=== PATIENT | female | born 1940 | race Caucasian/White ===

== ENCOUNTER 2017-11-26 08:52 | Inpatient (IN) | payer MEDICARE, BC ==
[~2017-11-26 08:52] MED LIST: CEFAZOLIN 2 GM/50 ML (PMX) 50 ML IVPB; KETOROLAC 30 MG INJ; TRANEXAMIC ACID 1,000 MG in DEXTROSE 5% 100 ML IVPB
[2017-11-26] MEDS: LACTATED RINGER'S 1,000 ML IV* (10:00)
[2017-11-26] MEDS: hydrALAzine 20 MG INJ IV (10:24)
[2017-11-26] MEDS: traMADol 50 MG TAB PO (10:24)
[2017-11-26] MEDS: DEXAMETHASONE 1 MG TAB PO (10:24)
[2017-11-26] MEDS: GABAPENTIN 300 MG CAP PO ×2 (10:25→20:47)
[2017-11-26] MEDS: metFORMIN (XR) 500 MG TAB PO (11:30)
[2017-11-26] MEDS ORDERED: PROPOFOL 20 ML (12:00)
[2017-11-26] MEDS ORDERED: GLUCOSE GEL 15 GRAM TUBE PO ×2 (12:00)
[2017-11-26] MEDS ORDERED: INSULIN ASPART [NOVOLOG] 3 ML PEN SC (12:00)
[2017-11-26] MEDS ORDERED: ONDANSETRON 4 MG INJ (12:00)
[2017-11-26] MEDS ORDERED: FENTAnyl 50 MCG/ML VIAL ×2 (12:00→12:29)
[2017-11-26] MEDS ORDERED: DEXTROSE 50% 50 ML SYRINGE IV ×2 (12:00)
[2017-11-26] MEDS ORDERED: GLUCAGON 1 MG INJ IM (12:00)
[2017-11-26] MEDS ORDERED: MIDAZOLAM 1 MG/ML 2 ML INJ (12:00)
[2017-11-26] MEDS ORDERED: GLUCOSE GEL 15 GRAM TUBE BUCCAL (12:00)
[2017-11-26] MEDS ORDERED: METOCLOPRAMIDE 10 MG INJ (12:01)
[2017-11-26] MEDS ORDERED: ROPIVACAINE 0.2% 20 ML VIAL (12:06)
[2017-11-26] MEDS ORDERED: CEFAZOLIN 1 GM INJ ×2 (12:23→12:25)
[2017-11-26] MEDS ORDERED: ACETAMINOPHEN 1000MG/100ML IV 100 ML (12:23)
[2017-11-26] MEDS: CA CHLORIDE 10% 10 ML SYRINGE (13:10)
[2017-11-26] MEDS: BUPIVACAINE 0.5% (SDV) 30 ML, morphine SULFATE (PF) 8 MG, EPINEPHrine 0.3 MG, KETOROLAC... IRR (13:10)
[2017-11-26] MEDS: POLYMYXIN/BACITRACIN 1L IRRIG (13:11)
[2017-11-26] MEDS: THROMBIN 5000 UNIT VIAL (13:12)
[2017-11-26] MEDS ORDERED: morphine 2 MG INJ IV (14:30)
[2017-11-26] MEDS ORDERED: KETOROLAC 15 MG INJ IV (14:30)
[2017-11-26] MEDS ORDERED: MAGNESIUM HYDROXIDE 30ML CUP PO (14:30)
[2017-11-26] MEDS ORDERED: OXYCODONE/ACETAMINOPHEN (5/325) TAB PO (14:30)
[2017-11-26] MEDS ORDERED: ACETAMINOPHEN 500 MG TAB PO (14:30)
[2017-11-26] MEDS ORDERED: DIPHENHYDRAMINE 50 MG INJ IV ×2 (14:30→15:00)
[2017-11-26] MEDS: CEFAZOLIN 1 GM/50 ML (PMX) 50 ML IVPB ×2 (14:59→23:12)
[2017-11-26] MEDS ORDERED: hydrALAzine 20 MG INJ IV (15:00)
[2017-11-26] MEDS ORDERED: HYDROmorphONE (0.2 MG/ML) 10ML SYG IV ×3 (15:00)
[2017-11-26] MEDS ORDERED: MEPERIDINE 25 MG INJ IV (15:00)
[2017-11-26] MEDS: TRANEXAMIC ACID 1,000 MG in DEXTROSE 5% 100 ML IV (15:00)
[2017-11-26] MEDS ORDERED: LABETALOL HCL 20MG INJ IV (15:00)
[2017-11-26] MEDS ORDERED: ONDANSETRON 4 MG INJ IV (15:00)
[2017-11-26] MEDS: DEXAMETHASONE 2 MG TAB PO ×2 (18:27→23:10)
[2017-11-26] MEDS: INSULIN ASPART [NOVOLOG] 3 ML PEN SC ×2 (18:29→20:46)
[2017-11-26] MEDS: SENNA/DOCUSATE NA (8.6MG/50MG) TAB PO (20:46)
[2017-11-26] MEDS: ATORVASTATIN 10 MG TAB PO (20:47)
[2017-11-26] MEDS: morphine 2 MG INJ IV (23:53)
[2017-11-27] MEDS: OXYCODONE/ACETAMINOPHEN (5/325) TAB PO ×3 (01:08→09:41)
[2017-11-27] MEDS: ZOLPIDEM 5 MG TAB PO (02:11)
[2017-11-27 05:36] LABS: ADD MAN DIFF? NO
[2017-11-27] MEDS: CEFAZOLIN 1 GM/50 ML (PMX) 50 ML IVPB (05:39)
[2017-11-27] MEDS: DEXAMETHASONE 2 MG TAB PO ×2 (05:39→12:57)
[2017-11-27 05:43] LABS: ABNORMAL IP MESSAGE 1; BASOPHILS % 0.1 % (0.0-2.0); HEMATOCRIT 29.2 % (37.0-47.0); HEMOGLOBIN 9.9 g/dl (12.0-16.0); LYMPHOCYTES # 0.4 10^3/ul (0.8-2.9); LYMPHOCYTES % 4.4 % (15.0-51.0); MEAN CORPUSCULAR HEMOGLOBIN 31.7 pg (29.0-33.0); MEAN CORPUSCULAR HGB CONC 33.9 g/dl (32.0-37.0); MEAN CORPUSCULAR VOLUME 93.6 fl (82.0-101.0); MEAN PLATELET VOLUME 10.8 fl (7.4-10.4); MONOCYTE # 0.3 10^3/ul (0.3-0.9); MONOCYTES % 2.7 % (0.0-11.0); NEUTROPHIL # 9.3 10^3/ul (1.6-7.5); NEUTROPHILS % 92.3 % (39.0-77.0); PLATELET COUNT 103 10^3/UL (140-415); RED BLOOD COUNT 3.12 10^6/ul (4.20-5.40)
[2017-11-27 05:58] LABS: POSITIVE DIFF @See below
[2017-11-27 06:22] LABS: ANION GAP 16 (8-16); BLOOD UREA NITROGEN 11 mg/dl (7-20); CALCIUM 8.5 mg/dl (8.4-10.2); CARBON DIOXIDE 29 mmol/L (21-31); CHLORIDE 100 mmol/L (97-110); GLUCOSE 254 mg/dl (70-220); POTASSIUM 3.9 mmol/L (3.5-5.1); SODIUM 141 mmol/L (135-144)
[2017-11-27] MEDS: NIFEdipine (XL) 30 MG TAB PO (08:38)
[2017-11-27] MEDS: metFORMIN (XR) 500 MG TAB PO (08:38)
[2017-11-27] MEDS: SENNA/DOCUSATE NA (8.6MG/50MG) TAB PO (08:39)
[2017-11-27] MEDS: LISINOPRIL 20 MG TAB PO (08:39)
[2017-11-27] MEDS: CITALOPRAM 20 MG TAB PO (08:39)
[2017-11-27] MEDS: ASPIRIN 81 MG TAB PO (08:40)
[2017-11-27] MEDS: HYDROCHLOROTHIAZIDE 25 MG TAB PO (08:40)
[2017-11-27] MEDS: ONDANSETRON 4 MG INJ IV (08:45)
[2017-11-27] MEDS: INSULIN ASPART [NOVOLOG] 3 ML PEN SC ×2 (08:55→13:00)
== END 2017-11-27 14:06 | disposition home or self-care (01) | DRG 483 ==
LOC: REC 08:52 → MS1 16:38
PROVIDERS: Orthopaedic Surgery
PROC: 0RRJ00Z Replacement of Right Shoulder Joint with Reverse Ball and Socket Synthetic Substitute, Open Approach (ICD-10-PCS; principal; 2017-11-26 11:00)
DX: S42.291A Other displaced fracture of upper end of right humerus, initial encounter for closed fracture (principal); E11.65 Type 2 diabetes mellitus with hyperglycemia; I10 Essential (primary) hypertension; S42.251A Displaced fracture of greater tuberosity of right humerus, initial encounter for closed fracture; S42.261A Displaced fracture of lesser tuberosity of right humerus, initial encounter for closed fracture; E78.5 Hyperlipidemia, unspecified; J45.909 Unspecified asthma, uncomplicated; M19.90 Unspecified osteoarthritis, unspecified site; W18.30XA Fall on same level, unspecified, initial encounter; Z87.891 Personal history of nicotine dependence; Z79.84 Long term (current) use of oral hypoglycemic drugs
CPT/HCPCS: 73030-RT; 80048; 82962; 85025; 86999; 88305; 88311; 97165